=== PATIENT | female | born 1940 | race Caucasian/White ===

== ENCOUNTER 2016-12-28 07:04 | Day surgery (SDC) | payer OTHER ==
[2016-12-28] MEDS ORDERED: TETRACAINE 0.5% OPHTH 1 DOSE AFFEYE ONE ×7 (07:10→09:46)
[2016-12-28] MEDS ORDERED: VIGAMOX 0.5% OPHTH 1 DOSE AFFEYE ONE ×5 (07:15→09:58)
[2016-12-28] MEDS ORDERED: NS 500 ML IV 500 ML IV ONE (07:19)
[2016-12-28] MEDS ORDERED: PROLENSA OPHTH 1 DOSE AFFEYE ONE (07:26)
[2016-12-28] MEDS ORDERED: ALPHAGAN-P OPHTH 1 DOSE AFFEYE ONE (07:27)
[2016-12-28] MEDS ORDERED: CYCLOGYL 1% OPHTH 1 DOSE OP ONE ×3 (07:28→07:30)
[2016-12-28] MEDS ORDERED: MYDRIACIL OPHTH 1 DOSE AFFEYE ONE ×3 (07:28→07:30)
[2016-12-28] MEDS ORDERED: AK-DILATE 2.5% OPHTH 1 DOSE OP ONE ×3 (07:28→07:30)
[2016-12-28] MEDS ORDERED: VERSED ONE (07:40)
[2016-12-28] MEDS ORDERED: VERSED IVP ONE ×4 (07:51→09:21)
[2016-12-28] MEDS ORDERED: AK-DILATE 10% OPHTH 1 DOSE AFFEYE ONE ×2 (07:53→09:22)
[2016-12-28] MEDS ORDERED: BETADINE OPHTH SOLN 5% EACHEYE ONE (09:38)
[2016-12-28] MEDS ORDERED: ADRENALINE CHL INJ IJ ONE ×2 (09:39→09:46)
[2016-12-28] MEDS ORDERED: XYLOCAINE-MPF 1% IJ ONE ×2 (09:39→09:46)
[2016-12-28] MEDS ORDERED: DUOVISC IO ONE ×2 (09:39→09:46)
[2016-12-28] MEDS ORDERED: BSS OPHTH (PLAIN) 500 ML with VANCOMYCIN HCL 500 MG VIAL 25 MG, ADRENALINE CHL INJ 1 MG IR ONE ×6 (09:40)
[2016-12-28 10:36] VITALS: BP 170/70
== END 2016-12-28 10:20 | disposition home or self-care (01) ==
LOC: SURG1 07:04
PROVIDERS: ATTEND Ophthalmology
PROC: 08DJ3ZZ Extraction of Right Lens, Percutaneous Approach (ICD-10-PCS; principal; 2016-12-28 08:15)
PROC: 08RJ3JZ Replacement of Right Lens with Synthetic Substitute, Percutaneous Approach (ICD-10-PCS; principal; 2016-12-28 08:15)
DX: H25.11 Age-related nuclear cataract, right eye (principal); H25.011 Cortical age-related cataract, right eye; H25.041 Posterior subcapsular polar age-related cataract, right eye; H52.221 Regular astigmatism, right eye
CPT/HCPCS: 99100; A4217; J0170; J2250; J3370